=== PATIENT | male | born 1965 | race Caucasian/White ===

== ENCOUNTER 2018-05-28 11:26 | Inpatient (IN) | payer OTHER ==
[2018-05-28 13:50] VITALS: BMI 23.6
--- NOTE | 2018-05-28 14:37 | HP ---
CIWA Score Nausea/Vomitin Muscle Tremors: 2 Anxiety: 2 Agitation: 2 Paroxysmal Sweats: 1-Minimal Palms Moist Orientation: 0-Oriented Tacttile Disturbances: 1-Very Mild Itch/Numbness Auditory Disturbances: 1-Very Mild Visual Disturbances: 0-None Headache: 2-Mild CIWA-Ar Total Score: 13 - Admission Criteria OASAS Guidelines: Admission for Medically Managed Detox: Requires at least one of the followin. CIWA greater than 12 2. Seizures within the past 24 hours 3. Delirium tremens within the past 24 hours 4. Hallucinations within the past 24 hours 5. Acute intervention needed for co occurring medical disorder 6. Acute intervention needed for co occurring psychiatric disorder 7. Severe withdrawal that cannot be handled at a lower level of care (continued vomiting, continued diarrhea, abnormal vital signs) requiring intravenous medication and/or fluids 8. Admission ROS BHS - HPI Chief Complaint: i need help to stop drinking alcohol and cocaine Allergies/Adverse Reactions: Allergies Allergy/AdvReac Type Severity Reaction Status Date / Time No Known Allergies Allergy Verified 05/28/18 13:44 History of Present Illness: this 53 years old male with alcohol and cocaine dependence,seeking detox, withdrawal symptom, [facility] detox [facility] ,do not recall the facility, multiple admissions in detox weight loss nicotine dependence 3 cigarette/day,do not need nicotine replacement anxiety,depression,insomnia,ptsd longest period of sobriety 10 years hypertension on med last medicated 2 days ago gerd on med low back pain s/p back surgery in 2012 left inguinal hernia 2000 [facility] Exam Limitations: No Limitations - Ebola screening Have you traveled outside of the country in the last 21 days: No (N) Have you had contact with anyone from an Ebola affected area: No Do you have a fever: No - Review of Systems Constitutional: Loss of Appetite, Malaise, Night Sweats, Changes in sleep, Unintentional Wgt. Loss EENT: reports: Tearing, Nose Congestion Respiratory: reports: No Symptoms reported Cardiac: reports: No Symptoms Reported GI: reports: Nausea, Poor Appetite, Indigestion, Other (gerd on med) : reports: No Symptoms Reported Musculoskeletal: reports: Back Pain, Muscle Pain Integumentary: reports: Dryness Neuro: reports: Tremors Endocrine: reports: No Symptoms Reported Hematology: reports: No Symptoms Reported Psychiatric: reports: No Sypmtoms Reported, Judgement Intact, Mood/Affect Appropiate, Orientated x3, Anxious, Depressed, other (insomnia.ptsd) Other Systems: Reviewed and Negative Patient History - Patient Medical History Hx Anemia: No Hx Asthma: No Hx Chronic Obstructive Pulmonary Disease (COPD): No Hx Cancer: No Hx Cardiac Disorders: No Hx Congestive Heart Failure: No Hx Hypertension: Yes (on med,non compliance) Hx Hypercholesterolemia: No Hx Pacemaker: No HX Cerebrovascular Accident: No Hx Seizures: No Hx Dementia: No Hx Diabetes: No Hx Gastrointestinal Disorders: Yes (gerd) Hx Liver Disease: No Hx Genitourinary Disorders: No Hx Sexually Transmitted Disorders: No Hx Renal Disease (ESRD): No Hx Thyroid Disease: No Hx Human Immunodeficiency Virus (HIV): No (last 04/08 negative) Hx Hepatitis C: No Hx Depression: Yes (anxiety,ptsd,insomnia) Hx Suicide Attempt: No Hx Bipolar Disorder: No Hx Schizophrenia: No Other Medical History: no suicidal,no homicidal,s/p back sugery,s/p left inguinal hernia repair in - Patient Surgical History Hx Abdominal Surgery: Yes (left inguiknal hernia repair in 2000) Hx Appendectomy: No Hx Cholecystectomy: No Hx Genitourinary Surgery: No Hx Section: No Hx Orthopedic Surgery: Yes (s/p back surgery in 2012) - PPD History Previous Implant?: Yes Documented Results: Positive w/o proof Implanted On Prior R Admission?: No PPD to be Administered?: No - Smoking Cessation Smoking history: Current every day smoker Have you smoked in the past 12 months: Yes Aproximately how many cigarettes per day: 3 Cigars Per Day: 0 Hx Chewing Tobacco Use: No Initiated information on smoking cessation: Yes 'Breaking Loose' booklet given: 05/28/18 - Substance & Tx. History Hx Alcohol Use: Yes Hx Substance Use: Yes Substance Use Type: Alcohol, Cocaine Hx Substance Use Treatment: Yes (in 04/08 [facility]) - Substances abused Alcohol Substance route: Oral Frequency: Daily Amount used: 6 packs of 12 ozs of beer (12 oz cans) Age of first use: 20 Date of last use: 05/26/18 Cocaine Substance route: Inhalation Frequency: 3-6 times per week Amount used: $60 Age of first use: 20 Date of last use: 05/27/18 Family Disease History - Family Disease History Family History: Denies Admission Physical Exam BHS - Vital Signs Vital Signs: Vital Signs - 24 hr 05/28/18 13:46 Temperature 97.0 F L Pulse Rate 81 Respiratory 18 Rate Blood Pressure 111/71 - Physical General Appearance: Yes: Moderate Distress, Tremorous (+), Irritable, Sweating, Anxious HEENTM: Yes: JOAQUIN, Pharynx Normal (otitis externa right) Respiratory: Yes: Lungs Clear, Normal Breath Sounds, No Respiratory Distress Neck: Yes: Within Normal Limits, Supple, Trachea in good position Breast: Yes: Within Normal Limits Cardiology: Yes: Within Normal Limits, Regular Rhythm, Regular Rate, S1, S2 Abdominal: Yes: Normal Bowel Sounds, Non Tender, Flat, Soft, Surgical Scar ( inguinal hernia size 2x3 cms reducible,) Genitourinary: Yes: Within Normal Limits Musculoskeletal: Yes: Back pain, Muscle Pain, Other (surgical sacr in midline lower back) Extremities: Yes: Tremors Neurological: Yes: Within Normal Limits, machine bander and cellophaner helper II-XII NML intact, Fully Oriented, Alert, Motor Strength 5/5 Integumentary: Yes: Dry Lymphatic: Yes: Within Normal Limits - Diagnostic (1) Alcohol dependence with uncomplicated withdrawal Current Visit: Yes Status: Acute (2) Cocaine dependence Current Visit: Yes Status: Acute (3) Low back pain Current Visit: Yes Status: Acute (4) History of back surgery Current Visit: Yes Status: Acute (5) Weight loss Current Visit: Yes Status: Acute (6) Nicotine dependence Current Visit: Yes Status: Acute (7) GERD (gastroesophageal reflux disease) Current Visit: Yes Status: Acute (8) Recurrent left inguinal hernia Current Visit: Yes Status: Acute (9) History of left inguinal hernia repair Current Visit: Yes Status: Acute (10) Otitis externa of right ear Current Visit: Yes Status: Acute (11) Weight loss Current Visit: Yes Status: Acute (12) Insomnia secondary to depression with anxiety Current Visit: Yes Status: Acute (13) PTSD (post-traumatic stress disorder) Current Visit: Yes Status: Acute (14) Positive PPD Current Visit: Yes Status: Acute Cleared for Admission [facility] - Detox or Rehab [facility] Level of Care: Medically Managed Detox Regimen/Protocol: Librium Breathalyzer - Breathalyzer Breathalyzer: 0 Urine Drug Screen - Test Device Lot number: [id number] Expiration date: 01/18/20 - Control Is test valid?: Yes - Results Drug screen NEGATIVE: No Urine drug screen results: SWAPNA-Cocaine Inpatient Rehab Admission - Rehab Decision to Admit Inpatient rehab admission?: No
[2018-05-28] MEDS ORDERED: BISMUTH SUBSALICYLATE 262 MG/15 ML BTL PO PRN (15:04)
[2018-05-28] MEDS ORDERED: IBUPROFEN 400 MG TABLET (FP) PO PRN (15:04)
[2018-05-28] MEDS ORDERED: MAG HYDROX/AL HYDROX/SIMETH 30 ML UNIT-DOSE CUP PO PRN (15:04)
[2018-05-28] MEDS ORDERED: MENTHOL/PHENOL 1 EACH UD MM PRN (15:04)
[2018-05-28] MEDS ORDERED: MAGNESIUM CITRATE 300 ML BOTTLE PO PRN (15:04)
[2018-05-28] MEDS ORDERED: MAGNESIUM HYDROX 2400MG/30ML ORAL SUSPENSION 30 ML CUP PO PRN (15:04)
[2018-05-28] MEDS ORDERED: chlordiazePOXIDE HCL 25 MG CAPSULE PO PRN (15:04)
[2018-05-28] MEDS ORDERED: ACETAMINOPHEN 325 MG TABLET (FP) PO PRN (15:04)
[2018-05-28] MEDS: ACETAMINOPHEN 325 MG TABLET (FP) PO PRN (15:40)
[2018-05-28 17:40] LABS: HEMATOCRIT 46.9 % (35.4-49); HEMOGLOBIN 15.6 GM/dL (11.7-16.9); MCH 29.5 pg (25.7-33.7); MCHC 33.2 g/dl (32.0-35.9); MEAN PLT VOLUME 8.3 fl (7.5-11.1); PLATELET COUNT 207 K/MM3 (134-434); RBC 5.26 M/mm3 (4.00-5.60); RDW 14.7 % (11.9-15.9); WHITE BLOOD COUNT 6.4 K/mm3 (4.0-10.0)
[2018-05-28 17:48] LABS: ALBUMIN 3.5 g/dl (3.4-5.0); ALK PHOS 63 U/L (45-117); ANION GAP 8 MMOL/L (8-16); BILIRUBIN,TOTAL 0.3 mg/dL (0.2-1); BLOOD UREA NITROGEN 15 mg/dL (7-18); CALCIUM 8.7 mg/dL (8.5-10.1); CHLORIDE 107 mmol/L (98-107); CO2 28 mmol/L (21-32); CREATININE 1.3 mg/dL (0.55-1.3); GLUCOSE,RANDOM 97 mg/dL (74-106); POTASSIUM 4.1 mmol/L (3.5-5.1); SGOT/AST 18 U/L (15-37); SGPT/ALT 23 U/L (13-61); SODIUM 143 mmol/L (136-145); TOT PROT 6.9 g/dl (6.4-8.2)
[2018-05-28] MEDS: chlordiazePOXIDE HCL 25 MG CAPSULE PO SCH ×2 (18:05→22:06)
[2018-05-28 18:43] LABS: EPI CELLS 3.6 /HPF (0-5/HPF); PH,URINE 5.5 (5.0-8.0); URINE APPEARANCE TURBID; URINE BACTERIA 5.1 /hpf (NEGATIVE); URINE BILIRUBIN NEGATIVE (NEGATIVE); URINE CASTS 17 /hpf (0-8); URINE COLOR DK YELLOW; URINE GLUCOSE (UA) NEGATIVE (NEGATIVE); URINE KETONE TRACE (NEGATIVE); URINE LEUK ESTERASE TRACE (NEGATIVE); URINE NITRITE NEGATIVE (NEGATIVE); URINE PROTEIN TRACE (NEGATIVE); URINE RBC 5 /hpf (0-4); URINE UROBILINOGEN 0.2 mg/dL (0.2-1.0); URINE WBC 9 /hpf (0-5)
[2018-05-28] MEDS: BACLOFEN 10 MG TABLET (FP) PO SCH (22:06)
[2018-05-28] MEDS: hydrOXYzine PAMOATE 25 MG CAPSULE (FP) PO PRN (22:06)
[2018-05-28] MEDS: THIAMINE HCL 100 MG TABLET (FP) PO SCH (22:06)
[2018-05-28] MEDS: QUEtiapine FUMARATE 100 MG TABLET (FP) PO SCH (22:06)
[2018-05-29] MEDS: chlordiazePOXIDE HCL 25 MG CAPSULE PO SCH ×4 (06:00→22:04)
[2018-05-29] MEDS: BACLOFEN 10 MG TABLET (FP) PO SCH ×2 (10:37→22:04)
[2018-05-29] MEDS: PANTOPRAZOLE 40 MG TABLET (FP) PO SCH (10:37)
[2018-05-29] MEDS: PRENATAL VITAMINS W/ FOLIC ACID TABLET (FP) PO SCH (10:37)
--- NOTE | 2018-05-29 10:58 | PN ---
S CIWA - CIWA Score Nausea/Vomitin Muscle Tremors: 2 Anxiety: 2 Agitation: 2 Paroxysmal Sweats: 2 Orientation: 0-Oriented Tacttile Disturbances: 1-Very Mild Itch/Numbness Auditory Disturbances: 1-Very Mild Visual Disturbances: 0-None Headache: 2-Mild CIWA-Ar Total Score: 14 S Progress Note (SOAP) Subjective: alert,irritable,anxious,interrupted sleep,tremor Objective: 05/29/18 10:55 Vital Signs Temperature 97.3 F L 05/29/18 09:12 Pulse Rate 62 05/29/18 09:12 Respiratory Rate 18 05/29/18 09:12 Blood Pressure 104/64 05/29/18 09:12 O2 Sat by Pulse Oximetry (%) 05/29/18 10:55 ekg nsr lvh QT?QTc 380/424 no chest pain,no sob,no dizziness 05/29/18 10:57 Laboratory Last Values WBC 6.4 K/mm3 (4.0-10.0) 05/28/18 15:10 RBC 5.26 M/mm3 (4.00-5.60) 05/28/18 15:10 Hgb 15.6 GM/dL (11.7-16.9) 05/28/18 15:10 Hct 46.9 % (35.4-49) 05/28/18 15:10 MCV 89.0 fl (80-96) 05/28/18 15:10 MCH 29.5 pg (25.7-33.7) 05/28/18 15:10 MCHC 33.2 g/dl (32.0-35.9) 05/28/18 15:10 RDW 14.7 % (11.9-15.9) 05/28/18 15:10 Plt Count 207 K/MM3 (134-434) 05/28/18 15:10 MPV 8.3 fl (7.5-11.1) 05/28/18 15:10 Sodium 143 mmol/L (136-145) 05/28/18 15:10 Potassium 4.1 mmol/L (3.5-5.1) 05/28/18 15:10 Chloride 107 mmol/L (98-107) 05/28/18 15:10 Carbon Dioxide 28 mmol/L (21-32) 05/28/18 15:10 Anion Gap 8 MMOL/L (8-16) 05/28/18 15:10 BUN 15 mg/dL (7-18) 05/28/18 15:10 Creatinine 1.3 mg/dL (0.55-1.3) 05/28/18 15:10 Creat Clearance w eGFR 58.20 (>60) 05/28/18 15:10 Random Glucose 97 mg/dL (74-106) 05/28/18 15:10 Calcium 8.7 mg/dL (8.5-10.1) 05/28/18 15:10 Total Bilirubin 0.3 mg/dL (0.2-1) 05/28/18 15:10 AST 18 U/L (15-37) 05/28/18 15:10 ALT 23 U/L (13-61) 05/28/18 15:10 Alkaline Phosphatase 63 U/L (45-117) 05/28/18 15:10 Total Protein 6.9 g/dl (6.4-8.2) 05/28/18 15:10 Albumin 3.5 g/dl (3.4-5.0) 05/28/18 15:10 Urine Color Dk yellow 05/28/18 17:02 Urine Appearance Turbid 05/28/18 17:02 Urine pH 5.5 (5.0-8.0) 05/28/18 17:02 Ur Specific [place] 1.033 (1.010-1.035) 05/28/18 17:02 Urine Protein Trace (NEGATIVE) 05/28/18 17:02 Urine Glucose (UA) Negative (NEGATIVE) 05/28/18 17:02 Urine Ketones Trace (NEGATIVE) H 05/28/18 17:02 Urine Blood 1+ (NEGATIVE) H 05/28/18 17:02 Urine Nitrite Negative (NEGATIVE) 05/28/18 17:02 Urine Bilirubin Negative (NEGATIVE) 05/28/18 17:02 Urine Urobilinogen 0.2 mg/dL (0.2-1.0) 05/28/18 17:02 Ur Leukocyte Esterase Trace (NEGATIVE) 05/28/18 17:02 Urine WBC (Auto) 9 /hpf (0-5) 05/28/18 17:02 Urine RBC (Auto) 5 /hpf (0-4) 05/28/18 17:02 Urine Casts (Auto) 17 /hpf (0-8) 05/28/18 17:02 U Epithel Cells (Auto) 3.6 /HPF (0-5/HPF) 05/28/18 17:02 Urine Bacteria (Auto) 5.1 /hpf (NEGATIVE) 05/28/18 17:02 RPR Titer Nonreactive (NONREACTIVE) 05/28/18 15:10 Assessment: 05/29/18 10:57 withdrawal symptom 05/29/18 10:58 no urinary problem Plan: continue detox
--- NOTE | 2018-05-29 16:39 | EKG ---
Test Reason : Blood Pressure : / mmHG Vent. Rate : 075 BPM Atrial Rate : 075 BPM P-R Int : 128 ms QRS Dur : 086 ms QT Int : 380 ms P-R-T Axes : 067 065 057 degrees QTc Int : 424 ms NORMAL SINUS RHYTHM MINIMAL VOLTAGE CRITERIA FOR LVH, MAY BE NORMAL VARIANT BORDERLINE ECG NO PREVIOUS ECGS AVAILABLE Confirmed by LILA CLEMENT MD ([id number]) on 05/29/2018 4:38:56 PM Referred By: Confirmed By:LILA CLEMENT MD
[2018-05-29] MEDS: QUEtiapine FUMARATE 100 MG TABLET (FP) PO SCH (22:04)
[2018-05-29] MEDS: THIAMINE HCL 100 MG TABLET (FP) PO SCH (22:04)
[2018-05-30] MEDS: chlordiazePOXIDE HCL 25 MG CAPSULE PO SCH ×2 (05:57→10:44)
[2018-05-30] MEDS: PRENATAL VITAMINS W/ FOLIC ACID TABLET (FP) PO SCH (10:44)
[2018-05-30] MEDS: PANTOPRAZOLE 40 MG TABLET (FP) PO SCH (10:44)
[2018-05-30] MEDS: BACLOFEN 10 MG TABLET (FP) PO SCH ×2 (10:44→22:17)
--- NOTE | 2018-05-30 12:15 | PN ---
S CIWA - CIWA Score Nausea/Vomitin Muscle Tremors: 2 Anxiety: 2 Agitation: 2 Paroxysmal Sweats: 2 Orientation: 0-Oriented Tacttile Disturbances: 1-Very Mild Itch/Numbness Auditory Disturbances: 1-Very Mild Visual Disturbances: 0-None Headache: 2-Mild CIWA-Ar Total Score: 14 BHS Progress Note (SOAP) Subjective: alet,irritable,anxious,interrupted sleep,tremor Objective: 05/30/18 12:14 Vital Signs Temperature 96.4 F L 05/30/18 09:19 Pulse Rate 81 05/30/18 09:19 Respiratory Rate 16 05/30/18 09:19 Blood Pressure 118/78 05/30/18 09:19 O2 Sat by Pulse Oximetry (%) Assessment: 05/30/18 12:14 withdrawal symptom Plan: continue detox
[2018-05-30] MEDS ORDERED: chlordiazePOXIDE HCL 10 MG CAPSULE PO PRN (17:00)
[2018-05-30] MEDS: chlordiazePOXIDE HCL 10 MG CAPSULE PO SCH ×2 (17:47→22:17)
[2018-05-30] MEDS: THIAMINE HCL 100 MG TABLET (FP) PO SCH (22:17)
[2018-05-30] MEDS: QUEtiapine FUMARATE 100 MG TABLET (FP) PO SCH (22:17)
[2018-05-31] MEDS: chlordiazePOXIDE HCL 10 MG CAPSULE PO SCH ×3 (05:25→17:25)
[2018-05-31] MEDS: PANTOPRAZOLE 40 MG TABLET (FP) PO SCH (09:43)
[2018-05-31] MEDS: BACLOFEN 10 MG TABLET (FP) PO SCH ×2 (09:44→22:07)
[2018-05-31] MEDS: PRENATAL VITAMINS W/ FOLIC ACID TABLET (FP) PO SCH (09:44)
--- NOTE | 2018-05-31 11:43 | PN ---
BHS Progress Note (SOAP) Subjective: Tremors, sweats, back pain and occasional dizziness Objective: 05/31/18 11:42 Vital Signs 05/31/18 05/31/18 06:27 10:00 Temperature 97.7 F 97.9 F Pulse Rate 91 H 76 Respiratory 18 16 Rate Blood Pressure 142/76 120/77 Laboratory Last Values WBC 6.4 K/mm3 (4.0-10.0) 05/28/18 15:10 RBC 5.26 M/mm3 (4.00-5.60) 05/28/18 15:10 Hgb 15.6 GM/dL (11.7-16.9) 05/28/18 15:10 Hct 46.9 % (35.4-49) 05/28/18 15:10 MCV 89.0 fl (80-96) 05/28/18 15:10 MCH 29.5 pg (25.7-33.7) 05/28/18 15:10 MCHC 33.2 g/dl (32.0-35.9) 05/28/18 15:10 RDW 14.7 % (11.9-15.9) 05/28/18 15:10 Plt Count 207 K/MM3 (134-434) 05/28/18 15:10 MPV 8.3 fl (7.5-11.1) 05/28/18 15:10 Sodium 143 mmol/L (136-145) 05/28/18 15:10 Potassium 4.1 mmol/L (3.5-5.1) 05/28/18 15:10 Chloride 107 mmol/L (98-107) 05/28/18 15:10 Carbon Dioxide 28 mmol/L (21-32) 05/28/18 15:10 Anion Gap 8 MMOL/L (8-16) 05/28/18 15:10 BUN 15 mg/dL (7-18) 05/28/18 15:10 Creatinine 1.3 mg/dL (0.55-1.3) 05/28/18 15:10 Creat Clearance w eGFR 58.20 (>60) 05/28/18 15:10 Random Glucose 97 mg/dL (74-106) 05/28/18 15:10 Calcium 8.7 mg/dL (8.5-10.1) 05/28/18 15:10 Total Bilirubin 0.3 mg/dL (0.2-1) 05/28/18 15:10 AST 18 U/L (15-37) 05/28/18 15:10 ALT 23 U/L (13-61) 05/28/18 15:10 Alkaline Phosphatase 63 U/L (45-117) 05/28/18 15:10 Total Protein 6.9 g/dl (6.4-8.2) 05/28/18 15:10 Albumin 3.5 g/dl (3.4-5.0) 05/28/18 15:10 Urine Color Dk yellow 05/28/18 17:02 Urine Appearance Turbid 05/28/18 17:02 Urine pH 5.5 (5.0-8.0) 05/28/18 17:02 Ur Specific [place] 1.033 (1.010-1.035) 05/28/18 17:02 Urine Protein Trace (NEGATIVE) 05/28/18 17:02 Urine Glucose (UA) Negative (NEGATIVE) 05/28/18 17:02 Urine Ketones Trace (NEGATIVE) H 05/28/18 17:02 Urine Blood 1+ (NEGATIVE) H 05/28/18 17:02 Urine Nitrite Negative (NEGATIVE) 05/28/18 17:02 Urine Bilirubin Negative (NEGATIVE) 05/28/18 17:02 Urine Urobilinogen 0.2 mg/dL (0.2-1.0) 05/28/18 17:02 Ur Leukocyte Esterase Trace (NEGATIVE) 05/28/18 17:02 Urine WBC (Auto) 9 /hpf (0-5) 05/28/18 17:02 Urine RBC (Auto) 5 /hpf (0-4) 05/28/18 17:02 Urine Casts (Auto) 17 /hpf (0-8) 05/28/18 17:02 U Epithel Cells (Auto) 3.6 /HPF (0-5/HPF) 05/28/18 17:02 Urine Bacteria (Auto) 5.1 /hpf (NEGATIVE) 05/28/18 17:02 RPR Titer Nonreactive (NONREACTIVE) 05/28/18 15:10 Labs noted Assessment: 05/31/18 11:42 Withdrawal sx Plan: Continue detox Encourage oral fluid intake Ensure safety
[2018-05-31] MEDS: QUEtiapine FUMARATE 100 MG TABLET (FP) PO SCH (22:07)
[2018-05-31] MEDS: THIAMINE HCL 100 MG TABLET (FP) PO SCH (22:07)
[2018-05-31] MEDS: MELATONIN 5 MG TABLETS PO PRN (22:07)
[2018-05-31] MEDS: METHOCARBAMOL 500 MG TABLET PO PRN (22:52)
[2018-06-01] MEDS: chlordiazePOXIDE HCL 10 MG CAPSULE PO SCH ×2 (06:52→17:37)
[2018-06-01] MEDS: PRENATAL VITAMINS W/ FOLIC ACID TABLET (FP) PO SCH (10:29)
[2018-06-01] MEDS: PANTOPRAZOLE 40 MG TABLET (FP) PO SCH (10:29)
[2018-06-01] MEDS: BACLOFEN 10 MG TABLET (FP) PO SCH ×2 (10:29→22:06)
--- NOTE | 2018-06-01 11:37 | PN ---
[facility] Progress Note Note: PATIENT CONTINUES WITH DETOX FROM ETOH. TO COMPLETE DETOX REGIMEN THIS EVENING. PATIENT STATES HE FEELS TIRED BUT OK. C/O INTERRUPTED SLEEP. Laboratory Tests 05/28/18 05/28/18 05/28/18 15:10 15:10 15:10 WBC 6.4 RBC 5.26 Hgb 15.6 Hct 46.9 MCV 89.0 MCH 29.5 MCHC 33.2 RDW 14.7 Plt Count 207 MPV 8.3 Sodium 143 Potassium 4.1 Chloride 107 Carbon Dioxide 28 Anion Gap 8 BUN 15 Creatinine 1.3 Creat Clearance w eGFR 58.20 Random Glucose 97 Calcium 8.7 Total Bilirubin 0.3 AST 18 ALT 23 Alkaline Phosphatase 63 Total Protein 6.9 Albumin 3.5 Urine Color Urine Appearance Urine pH Ur Specific [place] Urine Protein Urine Glucose (UA) Urine Ketones Urine Blood Urine Nitrite Urine Bilirubin Urine Urobilinogen Ur Leukocyte Esterase Urine WBC (Auto) Urine RBC (Auto) Urine Casts (Auto) U Epithel Cells (Auto) Urine Bacteria (Auto) RPR Titer Nonreactive 05/28/18 17:02 WBC RBC Hgb Hct MCV MCH MCHC RDW Plt Count MPV Sodium Potassium Chloride Carbon Dioxide Anion Gap BUN Creatinine Creat Clearance w eGFR Random Glucose Calcium Total Bilirubin AST ALT Alkaline Phosphatase Total Protein Albumin Urine Color Dk yellow Urine Appearance Turbid Urine pH 5.5 Ur Specific [place] 1.033 Urine Protein Trace Urine Glucose (UA) Negative Urine Ketones Trace H Urine Blood 1+ H Urine Nitrite Negative Urine Bilirubin Negative Urine Urobilinogen 0.2 Ur Leukocyte Esterase Trace Urine WBC (Auto) 9 Urine RBC (Auto) 5 Urine Casts (Auto) 17 U Epithel Cells (Auto) 3.6 Urine Bacteria (Auto) 5.1 RPR Titer Vital Signs (72 hours) 05/29/18 05/29/18 05/29/18 13:44 15:00 17:45 Temperature 97.3 F L 98.2 F 98.1 F Pulse Rate 92 H 94 H 86 Respiratory 18 18 18 Rate Blood Pressure 140/86 136/75 134/78 05/29/18 05/30/18 05/30/18 21:09 00:30 03:30 Temperature 98.2 F Pulse Rate 77 Respiratory 18 18 18 Rate Blood Pressure 132/76 05/30/18 05/30/18 05/30/18 06:00 09:19 14:27 Temperature 98.1 F 96.4 F L 96.8 F L Pulse Rate 89 81 94 H Respiratory 16 16 18 Rate Blood Pressure 117/62 118/78 136/78 05/30/18 05/31/18 05/31/18 21:41 00:30 03:30 Temperature 98.1 F Pulse Rate 100 H Respiratory 18 18 16 Rate Blood Pressure 135/82 05/31/18 05/31/18 05/31/18 06:27 10:00 14:02 Temperature 97.7 F 97.9 F 98.2 F Pulse Rate 91 H 76 102 H Respiratory 18 16 16 Rate Blood Pressure 142/76 120/77 139/83 05/31/18 05/31/18 06/01/18 17:33 22:46 00:30 Temperature 98.1 F 98.4 F Pulse Rate 107 H 90 Respiratory 19 18 18 Rate Blood Pressure 142/94 124/82 06/01/18 06/01/18 06:54 09:22 Temperature 97.7 F 98.4 F Pulse Rate 88 91 H Respiratory 18 16 Rate Blood Pressure 130/79 132/88 PE: ALERT AND ORIENTED X 3 SKIN WARM AND DRY GI SOFT,NT, ND NEG CVAT EXT NO VISIBLE TREMORS A/P: WITHDRAWAL SX HEMATURIA CONTINUE DETOX FOR D/C IN AM PATIENT INFORMED OF URINE RESULTS AND ENCOURAGED TO FOLLOW UP WITH PCP WITHIN ONE WEEK OF DISCHARGE FOR MEDICAL MANAGEMENT ORAL FLUIDS ENCOURAGED
[2018-06-01] MEDS: hydrOXYzine PAMOATE 25 MG CAPSULE (FP) PO PRN (13:28)
[2018-06-01] MEDS: ACETAMINOPHEN 325 MG TABLET (FP) PO PRN (13:28)
[2018-06-01] MEDS: MELATONIN 5 MG TABLETS PO PRN (22:06)
[2018-06-01] MEDS: THIAMINE HCL 100 MG TABLET (FP) PO SCH (22:06)
[2018-06-01] MEDS: QUEtiapine FUMARATE 100 MG TABLET (FP) PO SCH (22:06)
[2018-06-02 09:47] VITALS: BP 135/88; PULSE 100; TEMP 98.1
[2018-06-02] MEDS: PRENATAL VITAMINS W/ FOLIC ACID TABLET (FP) PO SCH (10:11)
[2018-06-02] MEDS: PANTOPRAZOLE 40 MG TABLET (FP) PO SCH (10:11)
[2018-06-02] MEDS: BACLOFEN 10 MG TABLET (FP) PO SCH (10:11)
[2018-06-02] MEDS: METHOCARBAMOL 500 MG TABLET PO PRN (10:13)
--- NOTE | 2018-06-02 13:53 | DS ---
[facility] Detox Discharge Summary Admission Date: 05/28/18 Discharge Date: 06/02/18 - History Present History: Alcohol Dependence, Cocaine Dependence Additional Comments: PATIENT GOING TO [facility] ([place], [place]) FOR AFTERCARE. PATIENT WAS DISCHARGED FORM DETOX UNIT IN STABLE MEDICAL CONDITION. Pertinent Past History: HTN, History Of G.E.R.D., History Of Depression, History of Post-Traumatic Stress Disorder (P.T.S.D.), History Of Anxiety, History Of Insomnia, History Of Positive PPD, History Of Lower Back Pain, History Of Back Surgery, Weight Loss, Otitis Externa Of Right Ear, Nicotine Dependence, History Of Recurrent Left Inguinal Hernia, History Of Left Inguinal Hernia Repair. - Physical Exam Results Vital Signs: Vital Signs Temperature 98.1 F 06/02/18 09:47 Pulse Rate 100 H 06/02/18 09:47 Respiratory Rate 18 06/02/18 09:47 Blood Pressure 135/88 06/02/18 09:47 O2 Sat by Pulse Oximetry (%) Pertinent Admission Physical Exam Findings: WITHDRAWAL SYMPTOMS. Laboratory Tests 05/28/18 05/28/18 05/28/18 15:10 15:10 15:10 WBC 6.4 RBC 5.26 Hgb 15.6 Hct 46.9 MCV 89.0 MCH 29.5 MCHC 33.2 RDW 14.7 Plt Count 207 MPV 8.3 Sodium 143 Potassium 4.1 Chloride 107 Carbon Dioxide 28 Anion Gap 8 BUN 15 Creatinine 1.3 Creat Clearance w eGFR 58.20 Random Glucose 97 Calcium 8.7 Total Bilirubin 0.3 AST 18 ALT 23 Alkaline Phosphatase 63 Total Protein 6.9 Albumin 3.5 Urine Color Urine Appearance Urine pH Ur Specific [place] Urine Protein Urine Glucose (UA) Urine Ketones Urine Blood Urine Nitrite Urine Bilirubin Urine Urobilinogen Ur Leukocyte Esterase Urine WBC (Auto) Urine RBC (Auto) Urine Casts (Auto) U Epithel Cells (Auto) Urine Bacteria (Auto) RPR Titer Nonreactive 05/28/18 17:02 WBC RBC Hgb Hct MCV MCH MCHC RDW Plt Count MPV Sodium Potassium Chloride Carbon Dioxide Anion Gap BUN Creatinine Creat Clearance w eGFR Random Glucose Calcium Total Bilirubin AST ALT Alkaline Phosphatase Total Protein Albumin Urine Color Dk yellow Urine Appearance Turbid Urine pH 5.5 Ur Specific [place] 1.033 Urine Protein Trace Urine Glucose (UA) Negative Urine Ketones Trace H Urine Blood 1+ H Urine Nitrite Negative Urine Bilirubin Negative Urine Urobilinogen 0.2 Ur Leukocyte Esterase Trace Urine WBC (Auto) 9 Urine RBC (Auto) 5 Urine Casts (Auto) 17 U Epithel Cells (Auto) 3.6 Urine Bacteria (Auto) 5.1 RPR Titer LABS NOTED. - Treatment Hospital Course: Detox Protocol Followed, Detoxed Safely, Responded well, Discharged Condition Good, Rehab Referral Accepted Patient has Accepted a Rehab Referral to: [facility] ([place], [place]). - Medication Discharge Medications: Ambulatory Orders Quetiapine Fumarate [Seroquel] 100 mg PO HS 05/28/18 - Diagnosis (1) Alcohol dependence with uncomplicated withdrawal Status: Acute (2) Cocaine dependence Status: Acute Qualifiers: Substance use status: uncomplicated Qualified Code(s): F14.20 - Cocaine dependence, uncomplicated (3) GERD (gastroesophageal reflux disease) Status: Acute Qualifiers: Esophagitis presence: esophagitis presence not specified Qualified Code(s) : K21.9 - Gastro-esophageal reflux disease without esophagitis (4) History of back surgery Status: Acute (5) History of left inguinal hernia repair Status: Acute (6) Insomnia secondary to depression with anxiety Status: Acute (7) Low back pain Status: Acute Qualifiers: Chronicity: unspecified Back pain laterality: unspecified Sciatica presence: unspecified whether sciatica present Qualified Code(s): M54.5 - Low back pain (8) Nicotine dependence Status: Acute Qualifiers: Nicotine product type: cigarettes Substance use status: uncomplicated Qualified Code(s): F17.210 - Nicotine dependence, cigarettes, uncomplicated (9) Otitis externa of right ear Status: Acute Qualifiers: Otitis externa type: unspecified type Chronicity: unspecified Qualified Code(s): H60.91 - Unspecified otitis externa, right ear (10) PTSD (post-traumatic stress disorder) Status: Acute (11) Positive PPD Status: Acute (12) Recurrent left inguinal hernia Status: Acute (13) Weight loss Status: Acute - AMA Did Patient Leave Against Medical Advice: No
== END 2018-06-02 13:35 | disposition home or self-care (01) | DRG 774 ==
LOC: YASAS 11:26 → Y6N 14:55
PROVIDERS: ADMIT Surgery; ATTEND Surgery
PROC: HZ2ZZZZ Detoxification Services for Substance Abuse Treatment (ICD-10-PCS; principal; 2018-05-28)
DX: F10.230 Alcohol dependence with withdrawal, uncomplicated (principal); F14.20 Cocaine dependence, uncomplicated; F17.210 Nicotine dependence, cigarettes, uncomplicated; F51.05 Insomnia due to other mental disorder; F43.10 Post-traumatic stress disorder, unspecified; R31.9 Hematuria, unspecified; M54.5 Low back pain; K21.9 Gastro-esophageal reflux disease without esophagitis; H60.91 Unspecified otitis externa, right ear; K40.91 Unilateral inguinal hernia, without obstruction or gangrene, recurrent; R76.11 Nonspecific reaction to tuberculin skin test without active tuberculosis; R63.4 Abnormal weight loss; Z68.23 Body mass index [BMI] 23.0-23.9, adult; Z98.890 Other specified postprocedural states; Z59.0 Homelessness
CPT/HCPCS: 36415; 71045-TC-FY; 80053; 81003; 85027; 86593; 93005; 93010; J0475